=== PATIENT | female | born 1955 | race African-American/Black ===

== ENCOUNTER 2017-01-23 05:07 | Day surgery (SDC) | payer MEDICARE ==
[~2017-01-23] VITALS: Ht 162.6 cm; Wt 81.2 kg
[~2017-01-23 05:07] MED LIST: ALTA5 PO; ASAB PO; ASABAYER PO; ASAEC PO; CORDARONE PO; COREG6 PO; DYAZIDE1 CAP PO; FOLIC PO; GLUCPH PO; HCTZ25B PO; KLOR-CON M2020 MEQ PO; LIOR10 PO; LIPITOR80 MG PO; LORTAB 5 PO; MAX25 PO; NEUR100 PO; NITROQUICK0.4 MG SL; NITROSTAT0.4 MG SL; NORCO1 TAB PO; PLAVIX PO; POTASSIUM PO; PREV30 PO; TOPXL100 PO; TOPXL50 PO; TURMERIC PO; VICODINTAB PO; VITE PO; ZETIA PO
[2017-01-25] MEDS ORDERED: PROTONIX PO (19:54)
[2017-01-25] MEDS ORDERED: NORCO1 TAB PO (19:55)
[2017-01-25] MEDS ORDERED: NEUR100 PO (19:55)
[2017-01-25] MEDS ORDERED: PLAVIX PO (19:55)
[2017-01-25] MEDS ORDERED: ALTA5 PO (19:55)
[2017-01-25] MEDS ORDERED: COREG6 PO (19:56)
[2017-01-25] MEDS ORDERED: ZETIA PO (19:56)
[2017-01-25] MEDS ORDERED: LIPITOR80 MG PO (19:56)
[2017-01-25] MEDS ORDERED: KLOR-CON M2020 MEQ PO (19:56)
[2017-01-25] MEDS ORDERED: FOLIC ACID800 MCG PO (19:57)
[2017-01-25] MEDS ORDERED: GLUCPH PO (19:57)
[2017-01-25] MEDS ORDERED: HALF81 PO (19:57)
[2017-01-25] MEDS ORDERED: GLUCOPHAGE1000 MG PO (19:57)
[2017-01-25] MEDS ORDERED: TURMERIC PO (19:58)
== END 2017-01-23 08:34 | disposition home or self-care (01) ==
LOC: SDC 05:07
PROVIDERS: Orthopaedic Surgery
PROC: B01BZZZ Fluoroscopy of Spinal Cord (ICD-10-PCS; 2017-01-23)
PROC: 3E0R33Z Introduction of Anti-inflammatory into Spinal Canal, Percutaneous Approach (ICD-10-PCS; 2017-01-23)
PROC: 3E0R3BZ Introduction of Anesthetic Agent into Spinal Canal, Percutaneous Approach (ICD-10-PCS; principal; 2017-01-23 07:00)
DX: M54.16 Radiculopathy, lumbar region (principal); Z79.82 Long term (current) use of aspirin; Z79.02 Long term (current) use of antithrombotics/antiplatelets; Z79.899 Other long term (current) drug therapy; Z87.891 Personal history of nicotine dependence; Z90.710 Acquired absence of both cervix and uterus; Z98.890 Other specified postprocedural states
CPT/HCPCS: 82962; J1040; J2250; J3010; Q9967